=== PATIENT | female | born 1945 | race Caucasian/White ===

== ENCOUNTER 2023-10-20 13:29 | Emergency (ER) | payer MEDICARE, SELFPAY ==
[2023-10-20 13:32] VITALS: BP 151/85; PULSE 76; RESP 16; TEMP 36.8; O2SAT 97; BMI 23.1
--- NOTE | 2023-10-20 13:48 | ED_ITS ---
HPI - General Adult General Chief complaint: Back Pain/Injury Stated complaint: NECK/UPPER EXTREMITY PAIN Time Seen by Provider: 10/20/23 13:40 Source: patient Mode of arrival: walk-in History of Present Illness HPI narrative: 78 year old female resents because her whole body hurts. Her legs have been hurting as well as her arms and her back. Her neck has been hurting but there's been no trauma. Because of the pain in her legs she was worried about a blood clot in her leg. No fever cough chest pain or shortness of breath. No dysuria or vomiting or diarrhea. She has had these symptoms for a few weeks. Related Data Home Medications Medication Instructions Recorded Confirmed alendronate 35 mg tablet mg PO 10/20/23 irbesartan 150 tab 10/20/23 mg-hydrochlorothiazide 12.5 mg tablet levothyroxine 50 mcg tablet mcg 10/20/23 simvastatin 10 mg tablet mg 10/20/23 Previous Rx's Medication Instructions Recorded cephalexin 500 mg capsule 500 mg PO TID 7 days #21 caps 10/20/23 Allergies Allergy/AdvReac Type Severity Reaction Status Date / Time No Known Drug Allergies Allergy Verified 10/20/23 13:36 Review of Systems ROS Narrative A ten point review of systems is negative except as noted above. Exam Narrative Exam Narrative: Nurses note and vital signs reviewed and patient is not hypoxic. General: The patient appears well and in no apparent distress. Patient is resting comfortably on cart. Skin: Warm, dry, no pallor noted. There is no rash noted. Vitiligo is present. Head: Normocephalic, atraumatic Eye: Normal conjunctiva, no drainage Ears, Nose, Mouth, and Throat: oral mucosa is moist. Nares patent. Cardiovascular: Regular Rate and Rhythm Respiratory: Patient is in no distress, no accessory muscle use, lungs are clear to auscultation, no wheezing, rales or rhonchi Back: no bruise or rash present GI: no tenderness to palpation, no masses appreciated. No rebound, guarding, or rigidity noted. Musculoskeletal: The patient has no evidence of calf tenderness, no pitting edema, symmetrical pulses noted bilaterally Neurological: A&O, normal speech Psychiatric: Cooperative Constitutional Vital Signs, click to edit/add: Last Vital Signs Temp 98.3 F 10/20/23 13:32 Pulse 76 10/20/23 13:32 Resp 16 10/20/23 13:32 BP 151/85 H 10/20/23 13:32 Pulse Ox 97 10/20/23 13:32 O2 Del Method Room Air 10/20/23 13:32 Course Vital Signs Vital signs: Vital Signs Temperature 98.3 F 10/20/23 13:32 Pulse Rate 76 10/20/23 13:32 Respiratory Rate 16 10/20/23 13:32 Blood Pressure 151/85 H 10/20/23 13:32 Pulse Oximetry 97 10/20/23 13:32 Oxygen Delivery Method Room Air 10/20/23 13:32 Temperature 98.3 F 10/20/23 13:32 Pulse Rate 76 10/20/23 13:32 Respiratory Rate 16 10/20/23 13:32 Blood Pressure 151/85 H 10/20/23 13:32 Pulse Oximetry 97 10/20/23 13:32 Oxygen Delivery Method Room Air 10/20/23 13:32 Medical Decision Making MDM Narrative Medical decision making narrative: Her blood workup is negative. D-dimer and CPK are normal. She may have mild urinary tract infection and is placed on Keflex. Treatment diagnosis and follow- up were discussed with the patient. Differential Diagnosis Differential Diagnosis: urinary tract infection, rhabdomyolysis, myalgia Lab Data Lab results reviewed: Yes I reviewed the patient's lab results Labs: Lab Results 10/20/23 10/20/23 Range/Units 13:54 15:03 WBC 6.8 (4.0-11.0) 10^3/uL RBC 4.26 (4.20-5.40) 10^6/uL Hgb 12.7 (12.0-16.0) g/dL Hct 39.4 (36.0-48.0) % MCV 92.5 (81.0-99.0) fL MCH 29.8 (26.7-34.0) pg MCHC 32.2 (29.9-35.2) g/dL RDW 12.4 (11.0-15.0) % Plt Count 201 (150-450) 10^3/uL MPV 9.3 L (9.5-13.5) fL Neut % (Auto) 66.3 (43.0-75.0) % Lymph % (Auto) 23.3 (20.5-60.0) % Long % (Auto) 7.8 (1.7-12.0) % Eos % (Auto) 1.9 (0.9-7.0) % Baso % (Auto) 0.4 (0.2-2.0) % Neut # (Auto) 4.5 (1.4-6.5) 10^3/uL Lymph # (Auto) 1.6 (1.2-3.8) 10^3/uL Long # (Auto) 0.5 (0.3-0.8) 10^3/uL Eos # (Auto) 0.1 (0.0-0.7) 10^3/uL Baso # (Auto) 0.0 (0.0-0.1) 10^3/uL Abs Immat Gran (auto) 0.02 (0.00-0.03) 10^3/uL Imm/Tot Granulo (auto) 0.3 (0.0-0.5) % D-Dimer 0.55 (<=0.59) mg/L FEU Sodium 143 (136-145) mmol/L Potassium 3.8 (3.5-5.1) mmol/L Chloride 106 (98-107) mmol/L Carbon Dioxide 29.1 (21.0-32.0) mmol/L Anion Gap 11.7 BUN 17.0 (7.0-18.0) mg/dL Creatinine 1.06 H (0.55-1.02) mg/dL Est GFR ( Amer) >60 (>=60) Est GFR (Non-Af Amer) 50 L (>=60) BUN/Creatinine Ratio 16.0 Glucose 119 H (74-106) mg/dL Calcium 9.2 (8.5-10.1) mg/dL Total Creatine Kinase 72 (26-192) U/L Urine Color Lt. yellow (YELLOW) Urine Clarity Clear (CLEAR) Urine pH 6.5 (5.0-9.0) Ur Specific [place] 1.020 (1.005-1.025) Urine Protein Negative (NEG/TRACE) mg/dL Urine Glucose (UA) Negative (NEGATIVE) mg/dL Urine Ketones Negative (NEGATIVE) mg/dL Urine Occult Blood Trace-i (NEGATIVE) Urine Nitrite Negative (NEGATIVE) Urine Bilirubin Negative (NEGATIVE) Urine Urobilinogen 0.2 (0.2-1.0) EU/dL Ur Leukocyte Esterase Moderate A (NEGATIVE) Urine RBC 0-2 (0-2) #/HPF Urine WBC 5-10 A (NONE SEEN) #/HPF Ur Squamous Epith Cells Few A (NONE/RARE) #/LPF Urine Crystals None seen (None Seen) #/HPF Urine Bacteria Trace A (NONE SEEN) #/HPF Urine Casts None seen (NONE SEEN) #/LPF Urine Mucus None seen (NONE SEEN) Discharge Plan Discharge Chief Complaint: Back Pain/Injury Clinical Impression: Urinary tract infection Patient Disposition: Home, Self-Care Time of Disposition Decision: 15:24 Condition: Good Mode of Transportation: Private Vehicle Prescriptions / Home Meds: New cephalexin 500 mg capsule 500 mg PO TID 7 Days Qty: 21 0RF No Action irbesartan-hydrochlorothiazide 150-12.5 mg tablet simvastatin 10 mg tablet alendronate 35 mg tablet PO levothyroxine 50 mcg tablet Instructions: Urinary Tract Infection in Older Adults (ED) Stand Alone Forms: Portal Instructions Referrals: INDIRA CAMPOS [Primary Care Provider] - 1 week
--- NOTE | 2023-10-20 13:48 | ECG_ITS ---
The [facility] Test Date: 2023-10-20 Pat Name: MANDO LEES Department: Room: - Gender: Female Phlebotomy Technologist: : 1945 Requested By: INDIRA CAMPOS Order Number: [id number] Reading MD: WINSTON ANTHONY Measurements Intervals [place] Rate: 73 P: 56 VA: 154 QRS: -41 QRSD: 114 T: 1 QT: 402 QTc: 428 Interpretive Statements 1100 Sinus rhythm 2450 Right bundle branch block 7200 Abnormal left axis deviation 8102 Low QRS voltage in chest leads 9150 abnormal ECG No previous ECG available for comparison Electronically Signed On 10-20-2023 19:58:09 EST by WINSTON ANTHONY
--- NOTE | 2023-10-20 13:48 | XR_ITS ---
The [address] [address] Patient Name: MANDO LEES MRN: [id number] date: 1945 Sex: F Assigned Patient Location: ER Current Patient Location: ER Accession/Order Number: [id number] Exam Date: 10/20/2023 14:05 Report Date: 10/20/2023 14:19 At the request of: CYNDIE SNOWDEN Procedure: XR chest 1V EXAM: XR chest 1V CLINICAL INDICATION: body pain TECHNIQUE: Portable frontal semi-erect view of the chest. COMPARISON: None. FINDINGS: Lines and tubes: None. Lungs: No convincing focal infiltrates. No pleural effusion or pneumothorax. Probable hiatal hernia. Heart: Cardiac and mediastinal contours are unremarkable. No overt pulmonary vascular congestion. Osseous structures: No acute abnormalities. XR/XR chest 1V IMPRESSION: No acute cardiopulmonary process. Electronically authenticated by: LIZZIE HARTMAN Date: 10/20/2023 14:19
[2023-10-20 14:09] LABS: Basophils Percent Auto 0.4 % (0.2-2.0); Eosinophils Absolute Auto 0.1 10^3/uL (0.0-0.7); Eosinophils Percent Auto 1.9 % (0.9-7.0); Hematocrit 39.4 % (36.0-48.0); Hemoglobin 12.7 g/dL (12.0-16.0); Immature Granulocytes Abs Auto 0.02 10^3/uL (0.00-0.03); Immature Granulocytes Pct Auto 0.3 % (0.0-0.5); Lymphocytes Absolute Auto 1.6 10^3/uL (1.2-3.8); Lymphocytes Percent Auto 23.3 % (20.5-60.0); Mean Corpuscular HGB Conc 32.2 g/dL (29.9-35.2); Mean Corpuscular Hemoglobin 29.8 pg (26.7-34.0); Mean Corpuscular Volume 92.5 fL (81.0-99.0); Mean Platelet Volume 9.3 fL (9.5-13.5); Monocytes Absolute Auto 0.5 10^3/uL (0.3-0.8); Monocytes Percent Auto 7.8 % (1.7-12.0); Neutrophils Absolute Auto 4.5 10^3/uL (1.4-6.5); Neutrophils Percent Auto 66.3 % (43.0-75.0); Platelet Count 201 10^3/uL (150-450); Red Blood Count 4.26 10^6/uL (4.20-5.40); Red Cell Distribution Width 12.4 % (11.0-15.0); White Blood Count 6.8 10^3/uL (4.0-11.0)
[2023-10-20 14:24] LABS: Anion Gap 11.7; Calcium 9.2 mg/dL (8.5-10.1); Carbon Dioxide 29.1 mmol/L (21.0-32.0); Chloride 106 mmol/L (98-107); Estimated GFR (African America >60 (>=60); Estimated GFR (Non-African Ame 50 (>=60); Glucose 119 mg/dL (74-106); Potassium 3.8 mmol/L (3.5-5.1); Sodium 143 mmol/L (136-145)
[2023-10-20 14:30] LABS: Creatine Kinase 72 U/L (26-192)
[2023-10-20 14:56] LABS: D Dimer 0.55 mg/L FEU (<=0.59)
[2023-10-20 15:13] LABS: Bilirubin Urine NEGATIVE (NEGATIVE); Blood Urine TRACE-I (NEGATIVE); Clarity Urine CLEAR (CLEAR); Color Urine LT. YELLOW (YELLOW); Glucose Urine UA NEGATIVE (NEGATIVE); Ketones Urine NEGATIVE (NEGATIVE); Leukocyte Esterase Urine MODERATE (NEGATIVE); Nitrite Urine NEGATIVE (NEGATIVE); Protein Urine NEGATIVE (NEG/TRACE); Urobilinogen Urine 0.2 EU/dL (0.2-1.0); pH Urine 6.5 (5.0-9.0)
[2023-10-20 15:19] LABS: Bacteria Urine TRACE #/HPF (NONE SEEN); Cast Seen? NONE SEEN #/LPF (NONE SEEN); Crystals Seen? None Seen #/HPF (None Seen); Mucus Urine NONE SEEN (NONE SEEN); RBC Urine 0-2 #/HPF (0-2); Squamous Epithelial Cell Urine FEW #/LPF (NONE/RARE)
== END 2023-10-20 15:37 | disposition home or self-care (01) ==
PROVIDERS: Emergency Provider Emergency Medicine; PCP Internal Medicine
DX: N39.0 Urinary tract infection, site not specified (principal); Z79.899 Other long term (current) drug therapy; Z79.890 Hormone replacement therapy
CPT/HCPCS: 36415; 71045; 80048; 81001; 82550; 85025; 85378; 93005; 99285

== ENCOUNTER 2024-01-12 08:20 | Outpatient (OUT) | payer MEDICARE, SELFPAY ==
--- NOTE | 2024-01-12 08:26 | FL_ITS ---
The [address] [address] Patient Name: MANDO LEES MRN: [id number] date: 1945 Sex: F [place]igned Patient Location: [place] Patient Location: [place] Accession/Order Number: [id number] Exam Date: 01/12/2024 08:30 Report Date: 01/12/2024 10:05 At the request of: INDIRA CAMPOS Procedure: FL cineradiography PROCEDURE: FL upper GI w air, FL cineradiography COMPARISON: None. HISTORY: Postprandial Nausea R11.0 TECHNIQUE: An air contrast upper gastrointestinal series was performed in the usual manner. Standard level fluoroscopic mode of operation utilized. FINDINGS: ESOPHAGUS:Large amount of gastroesophageal reflux STOMACH: Moderate sized hiatal hernia DUODENUM:No ulceration. 4 cm diverticulum descending duodenum OTHER: Negative. FL/FL cineradiography IMPRESSION: Moderate sized hiatal hernia Large amount of gastroesophageal reflux 4 cm diverticulum second, descending segment of the duodenum Electronically authenticated by: KUMAR GOODMAN Date: 01/12/2024 10:05
--- NOTE | 2024-01-12 08:26 | FL_ITS ---
The [address] [address] Patient Name: MNADO LEES MRN: [id number] date: 1945 Sex: F Assigned Patient [place]: [place] Location: [place] Accession/Order Number: [id number] Exam Date: 01/12/2024 08:30 Report Date: 01/12/2024 10:05 At the request of: INDIRA CAMPOS Procedure: FL upper GI w air PROCEDURE: FL upper GI w air, FL cineradiography COMPARISON: None. HISTORY: Postprandial Nausea R11.0 TECHNIQUE: An air contrast upper gastrointestinal series was performed in the usual manner. Standard level fluoroscopic mode of operation utilized. FINDINGS: ESOPHAGUS:Large amount of gastroesophageal reflux STOMACH: Moderate sized hiatal hernia DUODENUM:No ulceration. 4 cm diverticulum descending duodenum OTHER: Negative. FL/FL upper GI w air IMPRESSION: Moderate sized hiatal hernia Large amount of gastroesophageal reflux 4 cm diverticulum second, descending segment of the duodenum Electronically authenticated by: KUMAR GOODMAN Date: 01/12/2024 10:05
== END 2024-01-12 08:21 | disposition home or self-care (01) ==
LOC: FL 08:20
PROVIDERS: PCP Internal Medicine; Visit Provider Internal Medicine
DX: M54.50 Low back pain, unspecified (principal); G89.29 Other chronic pain; M54.2 Cervicalgia; R11.0 Nausea; K44.9 Diaphragmatic hernia without obstruction or gangrene; K21.9 Gastro-esophageal reflux disease without esophagitis; K57.10 Diverticulosis of small intestine without perforation or abscess without bleeding
CPT/HCPCS: 74246; 76120

== ENCOUNTER 2024-01-14 08:44 | Outpatient (OUT) | payer MEDICARE, SELFPAY ==
--- NOTE | 2024-01-14 | XR_ITS ---
The [address] [address] Patient Name: MANDO LEES MRN: [id number] date: 1945 Sex: F Assigned Patient Location: LAB Current Patient Location: Accession/Order Number: [id number] Exam Date: 01/14/2024 09:13 Report Date: 01/15/2024 06:40 At the request of: INDIRA CAMPOS Procedure: XR lumbar spine 2-3V EXAMINATION: XR lumbar spine 2-3V HISTORY: Chronic Midline Low Back Pain ; bilateral leg pain COMPARISON: No relevant comparison available. FINDINGS: BONES: Slight grade 1 retrolisthesis of L2 on 3. Mild/moderate degenerative facet arthropathy suspected at L3-4 through L5-S1. DISC SPACES: Suspect moderate narrowing L2-3 through L4-5 with marked narrowing at the left lateral margin of L3-4. PARASPINOUS: Large amount of dense contrast throughout the colon from prior radiographic study. OTHER: Negative. XR/XR lumbar spine 2-3V IMPRESSION: 1. Moderate degenerative changes of lumbar spine. 2. Limited evaluation of the lumbar spine due to obscuration by dense radiopaque contrast within the colon. Electronically authenticated by: WAYNE ECHEVERRIA Date: 01/15/2024 06:40
--- NOTE | 2024-01-14 | XR_ITS ---
The [address] [address] Patient Name: MANDO LEES MRN: [id number] date: 1945 Sex: F Assigned Patient Location: LAB Current Patient Location: LAB Accession/Order Number: [id number] Exam Date: 01/14/2024 09:13 Report Date: 01/15/2024 06:43 At the request of: INDIRA CAMPOS Procedure: XR cervical spine 2-3V EXAMINATION: XR cervical spine 2-3V HISTORY: Chronic Neck Pain COMPARISON: No relevant comparison available. FINDINGS: BONES: Moderate left convex curvature of cervical spine; normal lordotic curvature is maintained. Multilevel moderate degenerative facet arthropathy. No fracture or significant listhesis. DISC SPACES: Moderate narrowing C5 to with subchondral sclerosis. Mild narrowing at all cervical levels. PARASPINOUS: Negative. No paraspinous abnormality is seen. OTHER: Negative. XR/XR cervical spine 2-3V IMPRESSION: 1. Moderate degenerative changes of cervical spine. No appreciable acute abnormality. Electronically authenticated by: WAYNE ECHEVERRIA Date: 01/15/2024 06:43
--- OUTSIDE RECORDS SUMMARY | 2024-01-14 09:06 | XMS_ITS | CCD ---
Author Organization [facility] Care Team Providers Care Data Warehouse Developer Name Role Phone PHYSICIAN, DEFAULT Unavailable Unavailable PHYSICIAN, DEFAULT Unavailable Unavailable PHYSICIAN, DEFAULT Unavailable Unavailable PHYSICIAN, DEFAULT Unavailable Unavailable Rice, Claude W Unavailable Unavailable Rice, Claude W Unavailable Unavailable Rice, Claude W Unavailable Unavailable CLARKE, MIGUEL Unavailable Unavailable NICHOLSON, DR RIOS Attending Unavailable NICHOLSON, DR RIOS Consulting Unavailable CLARKE, DR RIVERA Primary Care Unavailable NICHOLSON, DR RIOS Admitting Unavailable CLARKE, DR RIVERA Admitting Unavailable CLARKE, DR RIVERA Attending Unavailable CLARKE, DR RIVERA Consulting Unavailable CLARKE, DR RIVERA Primary Care Unavailable Clarke, II Miguel Primary Care Provider Clarke, WILLIS Rivera Referring Provider [phone] Self, Referral Attending Provider Unavailable Clarke, II Miguel Primary Care Provider Clarke, II Miguel Referring Provider Self, Referral Attending Provider Unavailable Obermeyjackelyn, DONTE-C Shabana Parker Attending Provider Miguel Clarke Primary Care Unavailable Miguel Clarke Referring Unavailable Self, Referral Admitting Unavailable Self, Referral Attending Unavailable ObermeyerShabana Admitting Unavailable ObermeyerShabana Attending Unavailable Miguel Clarke Primary Care Unavailable ObermeyerShabana Admitting Unavailable ObermeyerShabana Attending Unavailable Miguel Clarke Primary Care Unavailable MIGUEL CLARKE Attending Unavailable MIGUEL CLARKE Referring Unavailable MIGUEL CLARKE Attending Unavailable MIGUEL CLARKE Attending Unavailable Problems Active Problems Problem Classification Problem Date Documented Da te Episodic/Chronic Nutritional deficiencies (4 sources) Vitamin D deficiency, unspecified; Translations: [VITAMIN D DEFICIENCY UNSPECIFIED] Onset: 08-15-2020 Chronic Osteoporosis (2 sources) Age-related osteoporosis without current pathological fracture; Translations: [AGE-REL OSTEOPOR W/O CURR PATH FX] Onset: 08-24-2020 Chronic Other upper respiratory disease (1 source) Nasal congestion; Translations: [NASAL CONGESTION] Onset: 05-14-2021 Episodic Other upper respiratory infections (1 source) Acute pharyngitis, unspecified; Translations: [ACUTE PHARYNGITIS UNSPECIFIED] Onset: 05-14-2021 Episodic Unclassified (3 sources) CONTACT W/AND (SUSP) EXPOS COVID-19; Translations: [CONTACT W/AND (SUSP) EXPOS COVID-19] Onset: 05-14-2021 Unclassified (1 source) Encounter for screening mammogram for malignant neoplasm of breast; Translations: [Encounter for screening mammogram for malignant neoplasm of breast] Onset: 08-27-2023 Past or Other Problems Problem Classification Problem Date Documented Da te Episodic/Chronic Other aftercare (1 source) Other intermodal truck driver (current) drug therapy; Translations: [OTH SHELTER CURRENT DRUG THERAPY] Onset: 08-24-2020 Episodic Unclassified (1 source) CONTACT W/AND (SUSP) EXPOS COVID-19; Translations: [CONTACT W/AND (SUSP) EXPOS COVID-19] Onset: 05-11-2021 Results Test Name Value Interpretation Reference Range Facility US GALLBLADDERon 12-23-2023 US GALLBLADDER US GALLBLADDER CLINICAL HISTORY: Postprandial nausea. COMPARISONS: NONE FINDINGS: TECHNIQUE: TRANSABDOMINAL ULTRASOUND OF THE RIGHT UPPER QUADRANT WAS PERFORMED. The liver shows no focal parenchymal abnormalities. No intrahepatic biliary dilatation. The gallbladder shows no pericholecystic fluid. The gallbladder wall is not thickened. It measures 1.9 millimeters. No sludge or stones. Common bile duct measures 5.4 millimeters. The visualized portion of pancreas unremarkable. The right kidney measures The right kidney measures 9.1 x 3.9 x 4.5 in the long, AP and transverse dimension. No surrounding perinephric fluid collection. No hydronephrosis. IMPRESSION: UNREMARKABLE SONOGRAPHIC EXAMINATION OF THE GALLBLADDER. ELECTRONICALLY SIGNED BY: Hair Guzman MD Normal Not Available Blood Urea Nitrogenon 2023 Urea nitrogen [Mass/Vol] 12 mg/dL Normal 7-25 [facility] Comment on above: Performed By: #### M G, BUN, PHOS, CA, CREAT #### [address] Calciumon 10-09-2023 Calcium [Mass/Vol] 9.5 mg/dL Normal 8.6-10.3 [facility] Comment on above: Performed By: #### M G, BUN, PHOS, CA, CREAT #### [facility] [address] [place] [address] [place] Calcium [Mass/volume] in Ser um or PlasmaOrdered By: Shabana Nguyen on 10-09-2023 Calcium [Mass/Vol] 9.5 mg/dL 8.6-10.3 [facility] Creatinineon 10-09-2023 Creatinine [Mass/Vol] 0.87 mg/dL Normal 0.60-1.20 [facility] Comment on above: Performed By: #### M G, BUN, PHOS, CA, CREAT #### [facility] [address] [place] [address] [place] GFR/1.73 sq M.predicted MDRD (S/P/Bld) [Vol rate/Area] mL/min/{1.73_m2} Normal [facility] Comment on above: Performed By: #### M G, BUN, PHOS, CA, CREAT #### [facility] [address] Creatinine [Mass/volume] in Serum or PlasmaOrdered By: Shabana Nguyen on 10-09-2023 Creatinine [Mass/Vol] 0.87 mg/dL 0.60-1.20 [facility] Magnesiumon 10-09-2023 Magnesium [Mass/Vol] 2.1 mg/dL Normal 1.9-2.7 [facility] Comment on above: Result Comment: PERF ORMED BY: [facility] [address] [place] [address] PATHOLOGIST CUTTING AND BONING SUPERVISOR ELVI IRWIN M.D. Performed By: #### M G, BUN, PHOS, CA, CREAT #### [facility] [address] [place] [address] [place] Magnesium [Mass/volume] in S andre or PlasmaOrdered By: Shabana Nguyen on 10-09-2023 Magnesium [Mass/Vol] 2.1 mg/dL 1.9-2.7 [facility] No Panel InformationOrdered By: Shabana Nguyen on 10-09-2023 Estimated GFR (CKD-EPI) > 60.0 mL/Min [facility] Creatinine Clearance (Chem N/A [facility] Phosphate [Mass/volume] in S andre or PlasmaOrdered By: Shabnaa Nguyen on 10-09-2023 Phosphate [Mass/Vol] 4.2 mg/dL 2.5-4.5 [facility] Phosphoruson 10-09-2023 Phosphate [Mass/Vol] 4.2 mg/dL Normal 2.5-4.5 [facility] Comment on above: Performed By: #### M G, BUN, PHOS, CA, CREAT #### [address] Urea nitrogen [Mass/volume] in Serum or PlasmaOrdered By: Shabana Nguyen on 10-09-2023 Urea nitrogen [Mass/Vol] 12 mg/dL 7 [facility] MM screening mammo BI w/CADo n 08-27-2023 MM screening mammo BI w/CAD [facility] Main [place] [address] [place] [address] Mammography Report Signed Patient: Mando Meyers MR#: [id number] : 1945 Acct:[id number] Age/Sex: 78 / F ADM Date: 08/27/23 Loc: [place] Room: Type: [facility] Attending Dr: Referral Self Copies to: Miguel Clarke II, MD SELF,REFERRAL Ordering Provider: SELF,REFERRAL Date of Service: 08/27/23 MM/MM screening mammo BI w/CAD: SCREENING CLINICAL DATA: Screening for malignancy. BILATERAL SCREENING MAMMOGRAMS - FULL FIELD DIGITAL WITH TOMOSYNTHESIS AND CAD Tomosynthesis craniocaudal and mediolateral oblique views of both breasts were obtained using low- dose digital technique. Comparison is made to prior studies from August 14, 2020 through August 26, 2022. This examination was reviewed with the aid of CAD. There are scattered fibroglandular densities. Benign and vascular calcifications are present. There are no developing masses, typically malignant calcifications or architectural distortion. There has been no significant interval change. MM/MM screening mammo BI w/CAD IMPRESSION: NO MAMMOGRAPHIC EVIDENCE OF MALIGNANCY. ROUTINE FOLLOW-UP IS RECOMMENDED IN ONE YEAR. RESULT CODE: 2 Benign Findings(s) DENSITY CODE: 2 (approximately 25-50% glandular) FOLLOW UP: 1YR The false-negative rate of mammography is approximately 10-percent. Management of a palpable abnormality must be based on clinical grounds. Patient was entered into a reminder system with a target due date for the next mammogram. Impression dictated by: Laura Le M.D.08/27/2023 1:36 PM Dictation Location: [facility] Transcribed By: OLGA 08/27/23 133 Dictated By: Laura Le MD 08/27/231333 Signed By: 08/27/[address] [facility] Covid-19 PCR (CVDTB)on 04-23 SARS-CoV-2 (COVID-19) RNA CATHLEEN+probe Ql (Unsp spec) Not detected Normal NOT DETECTED [facility] Comment on above: Result Comment: This test is not yet approved or cleared by the [place] FDA. When there are no FDA-approved or cleared tests available, and other criteria are met, FDA can make tests available under an emergency access mechanism called an Emergency Use Authorization (EUA). The EUA for this test is supported by the Dining Car Conductor of Health and Human Service's (HHS's) declaration that circumstances exist to justify the emergency use of in vitro diagnostics for the detection and/or diagnosis of the virus that causes COVID-19. This EUA will remain in effect (meaning this test can be used) for the duration of the COVID-19 declaration justifying emergency of IVDs, unless it is terminated or revoked by FDA (after which the test may no longer be used). When diagnostic testing is negative, the possibility of a false negative should be considered in the context of a patient's recent exposures and the presence of clinical signs and symptoms consistent with SARS-CoV-2. Performed By: #### C VDTB #### [facility] [address] [place] [address] Lou Sanchez VITAMIN D 25 OHon 08-15-2020 VIT D 25-OH 59.4 ng/mL Normal [facility] Comment on above: Performed By: #### V ITAD #### [facility] [address] [place], [place] [address] Lou Sanchez VIT D RANGES SEE BELOW Normal [facility] Comment on above: Result Comment: <20 ng/mL Vit D deficient 20 - <30 ng/mL Vit D insufficient 30 - 100 ng/mL Vit D sufficient >100 ng/mL Potential Toxicity Performed By: #### V ITAD #### [facility] [address] [place], [place] [address] Lou Sanchez VITDH PLEASE NOTE: NORMAL RANGE CHANGE 05-27-2013, TESTING PERFORMED AT [facility]. Normal [facility] Comment on above: Performed By: #### V ITAD #### [facility] [address] [place], [place] [address] Lou Sanchez Coding Summary.on 06-25-2017 Coding Summary. 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 However, the narrative phrase printed from the coding software may appear abbreviated, or result in slightly different terminology. Coded By: Erika Negro Date Saved: 06/25/2017 08:55 am Normal [facility] Main OR Intraoperative Recor macy 06-19-2017 Main OR Intraoperative Record IntraOp Document Type FTURO Summary Primary Physician: Nacho Esteban MD, Javier Parker Finalized Date/Time: 06/19/17 15:13:13 Pt. Name: MANDO MEYERS Haylee ChambersB./Sex: 1945 Female Med Rec #: [id number] Physician: Javier Griffith Jr., MD Financial #: [id number] Pt. Type: O Room/Bed: / Admit/Disch: 06/19/17 14:33:25 - Institution: Case Times FTURO Entry 1 Patient Times In Room 06/19/17 15:08:00 Out Room 06/19/17 15:17:00 Procedure Times Start 06/19/17 15:10:00 Stop 06/19/17 15:13:00 Anesthesia Times Last Modified By: Clinton GORDON, IRMAORValentina 06/19/17 15:13:01 Case Attendance FTURO Entry 1 Entry 2 Entry 3 Case Attendee Javier Griffith Jr., MD RN, CNOR, [place] CST, Nakita Montgomery Role Performed Surgeon - Primary Elementary Education Tutor - Primary Scrub - Primary Time In 06/19/17 15:08:00 06/19/17 15:08:00 06/19/17 15:08:00 Time Out 06/19/17 15:17:00 06/19/17 15:17:00 06/19/17 15:17:00 Procedure CYSTOSCOPY LOCAL WITH CYSTOSCOPY LOCAL WITH CYSTOSCOPY LOCAL WITH URETHRAL DILATION(.) URETHRAL DILATION(.) URETHRAL DILATION(.) Comments Last Modified By: Clinton GORDON, CNOR, Clinton RN, IRMAOR, Clinton GORDON, IRMAOR, Valentina 06/19/17 Valentina 06/19/17 Valentina 06/19/17 15:13:03 15:13:03 15:13:03 Surgical Procedures FTURO Entry 1 Procedure Description Procedure CYSTOSCOPY LOCAL WITH Modifiers . URETHRAL DILATION Surgeon Description CYSTOSCOPY WITH URETHRAL DILATATION Primary Procedure Yes Primary Surgeon Javier Grififth Jr., MD Start 06/19/17 15:10:00 Stop 06/19/17 15:13:00 Anesthesia Type Local Surgical Service Urology Wound Class 2 - Clean-Contaminated Last Modified By: Clinton GORDON, IRMAOR, Valentina 06/19/17 15:13:09 General Case Data FTURO Pre-Care Text: Classifies surgical wound, implements aseptic technique, initiates traffic control Entry 1 Case Information OR URO 1 FT Case Level None Wound Class 2 - Clean-Contaminated Specialty Urology Preop Diagnosis STRESS INCONTINENCE, Postop Same As Preop No HEMATURIA, DYSURIA, FREQUENCY Postop Diagnosis URETHRAL STRICTURE Outcomes Met? Yes Last Modified By: ROSS Alonzo RN, Ruthann 06/19/17 12:35:42 Post-Care Text: The patient is free from signs and symptoms of infection EU IntraOp - FTURO Pre-Care Text: Implements protective measures prior to operative or invasive procedure, confirms identity before the operative or invasive procedure, verifies operative procedure, surgical site, and laterality Entry 1 EU Perioperative Protocols Procedure(s) CYSTOSCOPY LOCAL WITH Patient Identity Birthday, ID Band URETHRAL DILATION(.) Verified (select at Check, Patient least 2): Participation Consents / H and P HandP, Surgery/Procedure Operative Site N/A Verified Consent Marking Verified Surgical Site Yes Laterality Verified n/a Verified Procedure Verified Yes Correct Patient Yes Position Verified Availability Equipment, Medication Time Out Javier Griffith Jr., MD, Verified (If Participants ROSS Alonzo RN, Applicable) May Montgomery CST, Gwen E Time Out Complete 06/19/17 15:10:00 Allergies Reviewed? Yes Allergies Reviewed Self/Patient With Body Position Frog Legged Prep Area PERINEAL AREA Prep Agents Betadine Solution Skin. Condition Intact Additional None Specimens Collected Vitals - EU Blood Pressure Pulse Respirations SPO2 EBL 0 IandO - EU Total Intake 0 mL Total Output 0 mL Outcomes Met? Yes Last Modified By: ROSS Alonzo RN, Ruthann 06/19/17 15:12:44 Post-Care Text: The patient is free from signs and symptoms of injury caused by extraneous objects Case Comments Finalized By: ROSS Alonzo RN, Ruthann Document Signatures Signed By: ROSS Alonzo RN, Ruthann 06/19/17 15:13 Normal [facility] Main OR Preoperative Recordo n 06-19-2017 Main OR Preoperative Record Holding Area Document Type FTURO Summary Primary Physician: Javier Griffith Jr., MD Finalized Date/Time: 06/19/17 15:11:55 Pt. Name: MANDO MEYERS/Sex: 1945 Female Med Rec #: [id number] Physician: Javier Griffith Jr., MD Financial #: [id number] Pt. Type: O Room/Bed: / Admit/Disch: 06/19/17 14:33:25 - Institution: Case Times Holding FTURO Pre-Care Text: Verifies consent for planned procedure, identifies individual values and wishes concerning care, includes family members in perioperative teaching Secures patient's records' belongings, and valuables, maintains patient's dignity and privacy, and maintains patient confidentiality Entry 1 In Holding 06/19/17 14:41:00 Outcomes Met? Yes Last Modified By: Chapis Anderson LPN 06/19/17 14:41:49 Post-Care Text: The patient participates in decisions affecting his or her perioperative plan of care The patient's right to privacy is maintained Surgery Checklist FTURO Entry 1 Patient Birthday, ID Band Procedure History and Physical, Identification: Check, Patient Verification: Surgical Consent, With Participation Patient NPO after Midnight: n/a Personal Items: Glasses Personal Items [place] Complaints of Pain: No Comment: Skin Integrity Intact, [place], Warm, & Dry Vitals - EU Blood Pressure 146/102 Pulse 63 bpm Respirations 18 br/min SPO2 RN Reviewed Yes Last Modified By: ROSS Alonzo RN, Ruthann 06/19/17 15:11:53 Finalized By: ROSS Alonzo RN, Ruthann Document Signatures Signed By: Chapis Anderson LPN 06/19/17 14:44 ROSS Alonzo RN, Ruthann 06/19/17 15:11 Normal [facility] Operative Reporton 7 Operative Report Patient: MANDO MEYERS Age: 71 years Sex: Female : 1945 Associated Diagnoses: None Author: Javier Griffith Jr., MD Procedure Operative Information Details: Date/ Time: 06/19/17 15:15:00. Pre-Op Dx: Micro Hematuria - Asymptomatic - R31.21, Stress Incontinence - N39.3, Frequency - R35.0, Urgency - R39.15, Urethral Stricture - Other Post Infective Female - N35.12. Post-Op Dx: Same. Anesthesia Type: Local. Procedure: Local Cystoscopy with Urethral Dilation. Complications: None. Risks/Benefits/Infor med Consent: Surgical risks, benefits, details of the procedure have been explained to the patient, Full informed consent has been obtained. Intraoperative Information Prepped: Patient is brought back to the endoscopy suite, Patient is placed in modified dorso/lithotomy position, Patient prepped in the usual fashion with Betadine solution, 2% Xylocaine Jelly is placed per Urethra, After waiting several minutes the Cystoscope is introduced. The Urethra is: Tight, Very tight urethral meatus noted.. The ureteral orifices: Show efflux of clear urine. The Urethra was dilated to: 28 Algerian w/ sounds. Devices Implanted: None. Removal: Cystoscope is removed, The patient tolerated it well. Postoperative Information Discharge: Patient is discharged home with antibiotic coverage, Follow up arranged. [facility] Comment on above: Result Comment: Elec tronically Signed By: Nacho Esteban MD, Javier Parker\.br\Date and Time Signed: 06/19/17 15:18 EDT Encounters Encounter Date Encounter Type Care Provider Facility Start: 12-23-2023 End: 12-24-2023 ambulatory MIGUEL Moustapha CLARKE Not Available Start: 12-17-2023 End: 12-17-2023 ambulatory MIGUEL B ANDRES Not Available Start: 10-09-2023 End: 10-09-2023 ambulatory Shabana Nguyen Facility:[facility] Start: 10-09-2023 End: 10-09-2023 ambulatory II Miguel Clarke Work Phone: [facility] Work Phone: Start: 10-09-2023 End: 10-09-2023 Patient encounter procedure II Miguel Clarke Work Phone: [facility] [address] Work Phone: Start: 10-03-2023 End: 10-03-2023 ambulatory Shabana Nguyen Facility:[facility] Start: 10-03-2023 End: 10-03-2023 ambulatory II Miguel Clarke Work Phone: [facility] Work Phone: Start: 10-03-2023 End: 10-03-2023 Patient encounter procedure II Miguel Clarke Work Phone: [facility] Work Phone: Start: 09-08-2023 End: 09-08-2023 ambulatory MIGUEL Moustapha CLARKE Not Available Start: 08-27-2023 End: 08-27-2023 ambulatory Miguel Clarke Facility:[facility] Start: 08-27-2023 End: 08-27-2023 Patient encounter procedure II Miguel Clarke Work Phone: [facility] Work Phone: Start: 08-25-2023 End: 08-25-2023 ambulatory MIGUEL Moustapha ANDRES Not Available Start: 08-26-2022 End: 08-26-2022 ambulatory II Miguel Clarke Work Phone: [facility] Work Phone: Start: 08-26-2022 End: 08-26-2022 Patient encounter procedure II Miguel Clarke Work Phone: [facility] Start: 05-11-2021 End: 05-12-[address] MIGUEL CLARKE Facility: Start: 08-15-2020 End: 08-16-[address] BLANCA NICHOLSON Facility: Start: 01-06-2018 End: 01-07-2018 Ambulatory DEFAULT PHYSICIAN Facility:[facility] Start: 12-11-2017 End: 12-12-2017 Ambulatory DEFAULT PHYSICIAN Facility:[facility] Start: 06-19-2017 End: 06-20-2017 Ambulatory Claude Moody Facility:[facility] Procedures Date Procedure Procedure Detail Performing Clinician Start: 10-03-2023 Dual energy X-ray absorptiometry II Miguel Clarke Work Phone: Start: 08-27-2023 Screening mammograph y of bilateral breasts II Miguel Clarke Work Phone: Start: 08-26-2022 Screening mammograph y of bilateral breasts II Miguel Clarke Work Phone: Payers Date Payer Category Payer Self-pay [id number] 2023 Private Health Insurance [id number] 2017 Medicare [id number] 1960 Medicare [id number] 1945 Unknown [id number] 1945 Unknown [id number] 1945 Unknown [id number] 1945 Unknown [id number] 1945 Unknown [id number] 1945 Unknown [id number] Private Health Insurance [employer] MCR PFFS 1 [id number] Unknown Unknown [place] BC/BS [id number] Unknown [id number] Unknown [id number] Unknown [id number] Social History Date Type Detail [facility] Work Phone: Start: 1945 Sex Assigned At Female F [facility] Evaluation note Note Date & Type Note Facility Evaluation note No assessment information availa ble [facility] Work Phone: Summary Purpose Family History No Family History Records FoundNo Family History Records FoundNo Family History Records FoundNo Family History Records FoundNo Family History Records Found Advance Directives No Advanced Directives Records Found Advance Directive Response Recorded Date/ Time Advance Directives No July 11:02am Chief Complaint and Reason for Visit Chief Complaint Screening Chief Complaint Screening m81.0 Additional Source Comments INFORMATION SOURCE (unrecogn ized section and content) DATE CREATED AUTHOR 03/12/2018 [facility] DATE CREATED AUTHOR AUTHOR'S ORGANIZ ATION 03/18/2018 [facility] DATE CREATED AUTHOR AUTHOR'S ORGANIZ ATION 05/15/2021 [facility] DATE CREATED AUTHOR AUTHOR'S ORGANIZ ATION 10/18/2023 [facility] DATE CREATED AUTHOR AUTHOR'S ORGANIZ ATION 12/27/2023 [facility] EPIC Care Teams (unrecognized sec tion and content) Team Status: Inactive Member Role Status Catarino Clarke II MD Primary Care Provider, Referring Provider Active Referral Self Attending Provider Active Team Status: Active Member Role Status Dates Miguel Clarke II MD Primary Care Provider Active Team Status: Inactive Member Role Status Catarino Clarke II MD Primary Care Provider Active MICHAEL Howell Attending Provider Active Team Status: Inactive Member Role Status Catarino Clarke II MD Primary Care Provid er, Referring Provider Active Start: August 27, 2023 End: August 27, 2023 Referral Self Attending Provider Active Start: 2022 End: August 27, 2023 Team Status: Inactive Member Role Status Catarino Clarke II MD Primary Care Provider Active Start: October 03, 2023 End: October 03, 2023 MICHAEL Howell Attending Provider Active Start: October 03, 2023 End: October 03, 2023 Team Status: Inactive Member Role Status Catarino Clarke II MD Primary Care Provider Active Start: October 09, 2023 End: October 09, 2023 MICHAEL Howell Attending Provider Active Start: October 09, 2023 End: October 09, 2023 Goals (unrecognized section and content) Goals may be documented in a n alternate sectionGoals may be documented in an alternate sectionGoals may be documented in an alternate section FOR RECORDS PERTAINING TO PATIENTS WHO ARE OR HAVE BEEN ENROLLED IN A CHEMICAL DEPENDENCY/SUBSTANCEABUSE PROGRAM, SOME INFORMATION MAY BE OMITTED. This clinical summary was aggregated from multiple sources. Caution should be exercised in using it in the provision of clinical care. This summary normalizes information from multiple sources, and as a consequence, information in this document may materially change the coding, format and clinical context of patient data. In addition, data may be omitted in some cases. CLINICAL DECISIONS SHOULD BE BASED ON THE PRIMARY CLINICAL RECORDS. [facility] [email or web address] [email or web address]. provides no warranty or guarantee of the accuracy or completeness of information in this document.
== END 2024-01-14 08:45 | disposition home or self-care (01) ==
LOC: LAB 08:44
PROVIDERS: PCP Internal Medicine; Visit Provider Internal Medicine
DX: M54.50 Low back pain, unspecified (principal); G89.29 Other chronic pain; R11.0 Nausea; M50.30 Other cervical disc degeneration, unspecified cervical region; M51.36 Other intervertebral disc degeneration, lumbar region
CPT/HCPCS: 72040; 72100